=== PATIENT | female | born 1975 | race African-American/Black ===

== ENCOUNTER 2017-01-02 09:29 | Emergency (ER) | payer OTHER ==
[~2017-01-02] VITALS: Ht 175.3 cm; Wt 136.7 kg
[2017-01-02 10:00] VITALS: BP 187/118
== END 2017-01-02 12:00 | disposition home or self-care (01) ==
LOC: EME 09:29
DX: G43.909 Migraine, unspecified, not intractable, without status migrainosus (principal); I10 Essential (primary) hypertension
CPT/HCPCS: 99281; 99284; J1885

== ENCOUNTER 2017-09-24 16:54 | Emergency (ER) | payer OTHER ==
[~2017-09-24] VITALS: Ht 175.3 cm; Wt 136.8 kg
[2017-09-24 17:29] LABS: HEMATOCRIT 38.8 % (36.0-46.0); MCH 28.6 PG (29.0-34.0); MCHC 33.5 G/DL (30.0-36.0); MCV 85.3 FL (83-99); PLATELET COUNT 496 K/uL (156-360); RBC DIS.WIDTH-CV 13.7 % (11.8-14.6); RBC DIS.WIDTH-SD 43.1 % (39-53); RED BLOOD COUNT 4.55 M/uL (3.80-5.20); WHITE BLOOD COUNT 12.8 K/uL (4.1-10.2)
[2017-09-24 17:40] LABS: CHLORIDE 108 mEq/L (99-109); POTASSIUM 3.9 mEq/L (3.7-5.4); SODIUM 143 mEq/L (136-147)
[2017-09-24 17:42] LABS: GLUCOSE 99 mg/dL (70-99)
[2017-09-24 17:46] LABS: CREATININE 0.9 mg/dL (0.6-1.3); GFR ESTIMATE (CALCULATED) > 59 mL/min/
[2017-09-24 17:47] LABS: UREA NITROGEN (BUN) 11 mg/dL (9-23)
[2017-09-24 17:52] LABS: TROP-I INTERPRETATION NEGATIVE; TROPONIN-I 0.01 ng/mL (0.0-0.30)
[2017-09-24] MEDS ORDERED: DYAZIDE, MA1 CAPSULE PO (18:15)
[2017-09-24] MEDS ORDERED: XANAX0.5 MG PO (18:16)
[2017-09-24] MEDS ORDERED: ZYRTEC10 M3 PO (18:17)
[2017-09-24 22:15] LABS: TROP-I INTERPRETATION NEGATIVE; TROPONIN-I < 0.01 ng/mL (0.0-0.30)
[2017-09-24] MEDS ORDERED: LOPRESSOR25 MG PO (22:50)
[2017-09-24] MEDS ORDERED: PERCOCET 10/1 TABLET PO (22:52)
[2017-09-24 23:08] VITALS: BP 154/99
== END 2017-09-24 23:09 | disposition home or self-care (01) ==
LOC: EME 16:54
PROVIDERS: Emergency Medicine
DX: R07.9 Chest pain, unspecified (principal); I10 Essential (primary) hypertension; R06.02 Shortness of breath
CPT/HCPCS: 71046; 71275; 80048; 84484; 85027; 93005; 99281; 99285